=== PATIENT | male | born 1965 | race Hispanic/Latino ===

== ENCOUNTER 2023-11-20 17:23 | Emergency (ER) | payer OTHER ==
[~2023-11-20] VITALS: Ht 172.7 cm; Wt 65.8 kg
[2023-11-20 17:35] VITALS: TEMP 98.2
[2023-11-20 17:52] LABS: BASOPHILS # (AUTO) 0.1 (0.0-0.1); BASOPHILS % 1.9 % (0.0-1.0); EOSINOPHILS # (AUTO) 0.2 (0.0-0.4); HEMATOCRIT 37.1 % (38.2-49.6); HEMOGLOBIN 12.8 g/dL (14.0-18.0); LYMPHOCYTES # (AUTO) 2.3 (1.0-3.2); LYMPHOCYTES % 35.4 % (18.0-39.1); MEAN CORPUSCULAR HEMOGLOBIN 34.9 pg (28-32); MEAN CORPUSCULAR HGB CONC 34.5 g/dL (31-35); MEAN CORPUSCULAR VOLUME 101.1 fL (81-99); MONOCYTES # (AUTO) 0.6 (0.2-0.8); MONOCYTES % 8.9 % (4.4-11.3); NEUTROPHILS # (AUTO) 3.2 (2.1-6.9); NEUTROPHILS % 50.5 % (38.7-80.0); PLATELET COUNT 382 x10e3/uL (140-360); RED BLOOD COUNT 3.67 x10e6/uL (4.3-5.7); RED CELL DISTRIBUTION WIDTH 12.3 % (11.7-14.4); WHITE BLOOD COUNT 6.39 x10e3/uL (4.8-10.8)
[2023-11-20 17:55] LABS: AMPHETAMINES SCREEN,URINE NEGATIVE (NEGATIVE); BENZODIAZEPINES SCREEN,URINE NEGATIVE (NEGATIVE); CLARITY,URINE HAZY (CLEAR); COLOR,URINE YELLOW (YELLOW); GLUCOSE, URINE NEGATIVE (NEGATIVE); KETONES,URINE NEGATIVE (NEGATIVE); LEUKOCYTE ESTERASE ,URINE NEGATIVE (NEGATIVE); NITRITE,URINE NEGATIVE (NEGATIVE); OPIATES SCREEN,URINE NEGATIVE (NEGATIVE); PH,URINE 6 (5 - 7); PHENCYCLIDINE SCREEN,URINE NEGATIVE (NEGATIVE); PROTEIN,URINE DIPSTICK NEGATIVE (NEGATIVE)
[2023-11-20 17:56] LABS: BACTERIA,URINE FEW /HPF; BILIRUBIN,URINE NEGATIVE (NEGATIVE); CANNABINOIDS SCREEN,URINE NEGATIVE (NEGATIVE); EPITHELIAL CELLS,URINE FEW /LPF; METHADONE SCREEN, URINE NEGATIVE (NEGATIVE); RBC,URINE 0-5 /HPF (0-5); URINE UROBILINOGEN 0.2 mg/dL (0.2 - 1); WBC,URINE (MAN) 0-5 /HPF (0-5)
[2023-11-20 18:01] LABS: INR 0.91; PROTHROMBIN TIME 12.7 seconds (11.9-14.5)
[2023-11-20 18:02] LABS: PARTIAL THROMBOPLASTIN TIME 27.9 seconds (23.8-35.5)
[2023-11-20 18:11] LABS: ALBUMIN 3.9 g/dL (3.5-5.0); ALBUMIN/GLOBULIN RATIO 1.3 (0.8-2.0); ANION GAP 19.7 mmol/L (8-16); BILIRUBIN,TOTAL 0.1 mg/dL (0.2-1.2); CALCIUM 8.9 mg/dL (8.4-10.2); CREATININE, SERUM 0.96 mg/dL (0.72-1.25); ETHANOL 241.7 mg/dL (0.0-10.0); POTASSIUM 3.7 mmol/L (3.5-5.1); TOTAL PROTEIN 6.8 g/dL (6.5-8.1)
[2023-11-20 18:17] LABS: TROPONIN I 0.001 ng/mL (0-0.300)
[2023-11-20] MEDS: SODIUM CHLORIDE 0.9% 1000ML 1,000 ML IV STA (18:28)
[2023-11-20 18:30] VITALS: PULSE 89; RESP 19
[2023-11-20] MEDS ORDERED: IOPAMIDOL 370 MG/ML 100 ML INFUS..BTL INJ ONE (19:25)
[2023-11-20] MEDS ORDERED: KETOROLAC TROME10 MG PO (20:07)
[2023-11-20] MEDS ORDERED: FLOMAX0.4 MG PO (20:07)
[2023-11-20 20:29] VITALS: BP 118/74; O2SAT 99
== END 2023-11-20 20:30 | disposition home or self-care (01) ==
LOC: ER 17:37
DX: R30.0 Dysuria (principal); R33.9 Retention of urine, unspecified; N40.0 Benign prostatic hyperplasia without lower urinary tract symptoms; R10.30 Lower abdominal pain, unspecified; K52.9 Noninfective gastroenteritis and colitis, unspecified; R91.8 Other nonspecific abnormal finding of lung field; K76.0 Fatty (change of) liver, not elsewhere classified; F17.210 Nicotine dependence, cigarettes, uncomplicated
CPT/HCPCS: 36415; 71260; 74177; 80053; 80307; 80320; 81001; 82550; 83690; 84484; 85025; 85610; 85730; 93005; 99284; J7030; Q9967

== ENCOUNTER 2024-01-03 19:55 | Inpatient (IN) | payer OTHER ==
[~2024-01-03] VITALS: Ht 167.6 cm; Wt 60.5 kg
[~2024-01-03 19:55] MED LIST: FLOMAX0.4 MG PO; KETOROLAC TROME10 MG PO
[2024-01-03 20:17] VITALS: TEMP 98.5
[2024-01-03 20:39] LABS: BASOPHILS # (AUTO) 0.1 (0.0-0.1); BASOPHILS % 0.4 % (0.0-1.0); HEMATOCRIT 29.9 % (38.2-49.6); HEMOGLOBIN 9.8 g/dL (14.0-18.0); LYMPHOCYTES # (AUTO) 1.4 (1.0-3.2); LYMPHOCYTES % 5.4 % (18.0-39.1); MEAN CORPUSCULAR HEMOGLOBIN 33.3 pg (28-32); MEAN CORPUSCULAR HGB CONC 32.8 g/dL (31-35); MEAN CORPUSCULAR VOLUME 101.7 fL (81-99); MONOCYTES # (AUTO) 1.7 (0.2-0.8); MONOCYTES % 6.6 % (4.4-11.3); NEUTROPHILS # (AUTO) 21.8 (2.1-6.9); NEUTROPHILS % 86.8 % (38.7-80.0); PLATELET COUNT 391 x10e3/uL (140-360); RED BLOOD COUNT 2.94 x10e6/uL (4.3-5.7); RED CELL DISTRIBUTION WIDTH 13.7 % (11.7-14.4); WHITE BLOOD COUNT 25.17 x10e3/uL (4.8-10.8)
[2024-01-03 20:40] VITALS: PULSE 96; RESP 20; O2SAT 99
[2024-01-03 20:41] LABS: BILIRUBIN,URINE NEGATIVE (NEGATIVE); CLARITY,URINE SL CLOUDY (CLEAR); COLOR,URINE YELLOW (YELLOW); GLUCOSE, URINE NEGATIVE (NEGATIVE); KETONES,URINE NEGATIVE (NEGATIVE); LEUKOCYTE ESTERASE ,URINE MODERATE (NEGATIVE); NITRITE,URINE NEGATIVE (NEGATIVE); PH,URINE 6.5 (5 - 7); PROTEIN,URINE DIPSTICK NEGATIVE (NEGATIVE); URINE UROBILINOGEN 0.2 mg/dL (0.2 - 1)
[2024-01-03 20:53] LABS: ALBUMIN 3.9 g/dL (3.5-5.0); ALBUMIN/GLOBULIN RATIO 1.1 (0.8-2.0); ANION GAP 17.4 mmol/L (8-16); BILIRUBIN,TOTAL 0.7 mg/dL (0.2-1.2); CALCIUM 9.3 mg/dL (8.4-10.2); CREATININE, SERUM 0.75 mg/dL (0.72-1.25); TOTAL PROTEIN 7.6 g/dL (6.5-8.1)
[2024-01-03 20:54] LABS: POTASSIUM 3.4 mmol/L (3.5-5.1)
[2024-01-03 20:55] LABS: BACTERIA,URINE MODERATE /HPF; RBC,URINE 0-5 /HPF (0-5)
[2024-01-03] MEDS: SODIUM CHLORIDE 0.9% 1000ML 1,000 ML IV SCH ×2 (21:03→21:53)
[2024-01-03] MEDS: Morphine 4mg INJECTION 4 MG/ML INJ IV PRN (21:03)
[2024-01-03] MEDS: ONDANSETRON HCL INJ 2MG/ML 2ML 2 MG/ML VIAL IV PRN (21:04)
[2024-01-03] MEDS: PIPERACILLIN/TAZOBACTAM 4.5 GM in SODIUM CHLORIDE 0.9% 100 ML IV ONE (21:04)
[2024-01-03 21:40] VITALS: PULSE 92; RESP 16
[2024-01-03 23:53] VITALS: BP 127/72; PULSE 108; RESP 20; TEMP 98.6; O2SAT 100
[2024-01-04] VITALS (9 sets, daily range): BP systolic 124–145; BP diastolic 72–85; PULSE 92–116; RESP 18–20; TEMP 98.2–99.9; O2SAT 96–100
[2024-01-04 05:26] LABS: ANION GAP 11.8 mmol/L (8-16); CALCIUM 8.6 mg/dL (8.4-10.2); CREATININE, SERUM 0.76 mg/dL (0.72-1.25); POTASSIUM 3.8 mmol/L (3.5-5.1)
[2024-01-04 05:33] LABS: BASOPHILS # (AUTO) 0.1 (0.0-0.1); BASOPHILS % 0.5 % (0.0-1.0); EOSINOPHILS % 0.1 % (0.0-6.0); HEMATOCRIT 28.8 % (38.2-49.6); HEMOGLOBIN 9.7 g/dL (14.0-18.0); LYMPHOCYTES # (AUTO) 0.8 (1.0-3.2); LYMPHOCYTES % 3.8 % (18.0-39.1); MEAN CORPUSCULAR HEMOGLOBIN 33.3 pg (28-32); MEAN CORPUSCULAR HGB CONC 33.7 g/dL (31-35); MONOCYTES # (AUTO) 1.2 (0.2-0.8); MONOCYTES % 5.9 % (4.4-11.3); NEUTROPHILS # (AUTO) 18.4 (2.1-6.9); NEUTROPHILS % 89.1 % (38.7-80.0); PLATELET COUNT 355 x10e3/uL (140-360); RED BLOOD COUNT 2.91 x10e6/uL (4.3-5.7); RED CELL DISTRIBUTION WIDTH 13.9 % (11.7-14.4); WHITE BLOOD COUNT 20.68 x10e3/uL (4.8-10.8)
[2024-01-04] MEDS ORDERED: PANTOPRAZOLE SO40 MG PO (06:13)
[2024-01-04] MEDS ORDERED: ULTRAM 50MG50 MG PO (06:13)
[2024-01-04] MEDS ORDERED: LABETALOL HCL 5 MG/ML 20ML VIAL IV PRN (07:00)
[2024-01-04] MEDS ORDERED: DOCUSATE SODIUM 100 MG CAP PO SCH (09:00)
[2024-01-04 10:51] LABS: BASOPHILS % (MANUAL) 1 % (0-1.5); LYMPHOCYTES % (MANUAL) 4 % (19-48); MONOCYTES % (MANUAL) 2 % (3.4-9.0); NEUTROPHILS % (MANUAL) 93 % (40-74)
[2024-01-04 10:52] LABS: HYPOCHROMASIA SLIGHT; PLATELET ESTIMATE ADEQUATE; PLATELET MORPHOLOGY COMMENT NORMAL
[2024-01-04] MEDS: DOCUSATE SODIUM 100 MG CAP PO SCH (11:14)
[2024-01-05] VITALS (8 sets, daily range): BP systolic 120–154; BP diastolic 67–88; PULSE 85–112; RESP 16–19; TEMP 97.8–99.5; O2SAT 98–100
[2024-01-05 04:59] LABS: BASOPHILS # (AUTO) 0.1 (0.0-0.1); BASOPHILS % 0.5 % (0.0-1.0); EOSINOPHILS # (AUTO) 0.1 (0.0-0.4); EOSINOPHILS % 0.5 % (0.0-6.0); HEMATOCRIT 27.8 % (38.2-49.6); LYMPHOCYTES # (AUTO) 1.1 (1.0-3.2); LYMPHOCYTES % 4.8 % (18.0-39.1); MEAN CORPUSCULAR HEMOGLOBIN 33.3 pg (28-32); MEAN CORPUSCULAR HGB CONC 32.4 g/dL (31-35); MONOCYTES # (AUTO) 1.6 (0.2-0.8); MONOCYTES % 7.2 % (4.4-11.3); NEUTROPHILS # (AUTO) 18.8 (2.1-6.9); NEUTROPHILS % 85.4 % (38.7-80.0); PLATELET COUNT 328 x10e3/uL (140-360); RED CELL DISTRIBUTION WIDTH 13.8 % (11.7-14.4); WHITE BLOOD COUNT 22.05 x10e3/uL (4.8-10.8)
[2024-01-05 05:30] LABS: ANION GAP 12.4 mmol/L (8-16); CHOL/HDL RATIO 1.9 (3.9-4.7); CREATININE, SERUM 0.64 mg/dL (0.72-1.25); MAGNESIUM 1.8 MG/DL (1.3-2.1); PHOSPHORUS 2.7 MG/DL (2.3-4.7)
[2024-01-05 05:32] LABS: POTASSIUM 3.4 mmol/L (3.5-5.1)
[2024-01-05 05:56] LABS: FREE T4 (FREE THYROXINE) 1.14 ng/dL (0.8-1.8); THYROID STIMULATING HORMONE 1.125 uIU/mL (0.350-4.940)
[2024-01-05] MEDS: POLYETHYLENE GLYCOL 3350 17 GM PACK PO PRN (09:11)
[2024-01-06] VITALS (10 sets, daily range): BP systolic 117–133; BP diastolic 60–90; PULSE 80–103; RESP 16–18; TEMP 97.9–98.9; O2SAT 96–99
[2024-01-06] MEDS: PANTOPRAZOLE SOD 40 MG TABEC PO SCH (04:51)
[2024-01-06 05:31] LABS: BASOPHILS # (AUTO) 0.1 (0.0-0.1); BASOPHILS % 0.4 % (0.0-1.0); EOSINOPHILS # (AUTO) 0.1 (0.0-0.4); EOSINOPHILS % 0.7 % (0.0-6.0); HEMATOCRIT 24.4 % (38.2-49.6); HEMOGLOBIN 8.3 g/dL (14.0-18.0); LYMPHOCYTES # (AUTO) 1.2 (1.0-3.2); LYMPHOCYTES % 6.8 % (18.0-39.1); MEAN CORPUSCULAR HEMOGLOBIN 33.6 pg (28-32); MEAN CORPUSCULAR VOLUME 98.8 fL (81-99); MONOCYTES # (AUTO) 1.6 (0.2-0.8); NEUTROPHILS # (AUTO) 14.5 (2.1-6.9); NEUTROPHILS % 81.1 % (38.7-80.0); PLATELET COUNT 331 x10e3/uL (140-360); RED BLOOD COUNT 2.47 x10e6/uL (4.3-5.7); RED CELL DISTRIBUTION WIDTH 13.7 % (11.7-14.4); WHITE BLOOD COUNT 17.83 x10e3/uL (4.8-10.8)
[2024-01-06 06:05] LABS: ANION GAP 12.4 mmol/L (8-16); CALCIUM 8.8 mg/dL (8.4-10.2); CREATININE, SERUM 0.68 mg/dL (0.72-1.25)
[2024-01-06 06:06] LABS: POTASSIUM 3.4 mmol/L (3.5-5.1)
[2024-01-06] MEDS: POTASSIUM CHLORIDE 10MEQ EA PO ONE (12:22)
[2024-01-07] VITALS (11 sets, daily range): BP systolic 113–134; BP diastolic 62–81; PULSE 78–101; RESP 16–18; TEMP 97.4–98; O2SAT 96–99
[2024-01-07] MEDS ORDERED: FENTANYL CITRATE/PF 100MCG/2 ML INJ ONE (07:08)
[2024-01-07] MEDS ORDERED: ROCURONIUM BROMIDE 1 ML IV ONE (07:08)
[2024-01-07] MEDS ORDERED: PROPOFOL IV EMULSION 10 MG/ML 20 ML VIAL ONE (07:08)
[2024-01-07] MEDS ORDERED: KETOROLAC TROMETHAMINE 30 MG/ML VIAL ONE (07:09)
[2024-01-07] MEDS ORDERED: ONDANSETRON HCL INJ 2MG/ML 2ML 2 MG/ML VIAL ONE (07:09)
[2024-01-07] MEDS ORDERED: LIDOCAINE HCL 2% LOCAL INJ 5 ML SDV VIAL INJ ONE (07:09)
[2024-01-07] MEDS ORDERED: DEXAMETHASONE SOD PHOS INJ 4 MG/ML SDV ONE (07:09)
[2024-01-07] MEDS ORDERED: EPHEDRINE SULFATE INJ 50 MG/ML VIAL ONE (07:46)
[2024-01-07] MEDS ORDERED: Morphine 10mg syringe 10 MG/ML INJ ONE (08:08)
[2024-01-07] MEDS ORDERED: ACETAMINOPHEN 1000 MG/100 ML IV PRN (09:15)
[2024-01-07] MEDS ORDERED: PHENAZOPYRIDINE HCL 100 MG TAB PO PRN (09:15)
[2024-01-07] MEDS ORDERED: ACETAMINOPHEN/CODEINE 300MG - 30MG TAB PO PRN (09:15)
[2024-01-07] MEDS: ACETAMINOPHEN/CODEINE 300MG - 30MG TAB PO ONE (09:52)
[2024-01-07] MEDS: SODIUM CHLORIDE 0.9% 1000ML 1,000 ML IV SCH (10:00)
[2024-01-07 10:03] LABS: BASOPHILS # (AUTO) 0.1 (0.0-0.1); BASOPHILS % 0.4 % (0.0-1.0); EOSINOPHILS # (AUTO) 0.1 (0.0-0.4); EOSINOPHILS % 0.7 % (0.0-6.0); HEMOGLOBIN 8.2 g/dL (14.0-18.0); LYMPHOCYTES % 4.6 % (18.0-39.1); MEAN CORPUSCULAR HGB CONC 30.4 g/dL (31-35); MONOCYTES # (AUTO) 0.6 (0.2-0.8); MONOCYTES % 2.9 % (4.4-11.3); NEUTROPHILS # (AUTO) 18.8 (2.1-6.9); NEUTROPHILS % 90.7 % (38.7-80.0); PLATELET COUNT 86 x10e3/uL (140-360); RED BLOOD COUNT 2.41 x10e6/uL (4.3-5.7); RED CELL DISTRIBUTION WIDTH 13.9 % (11.7-14.4); WHITE BLOOD COUNT 20.72 x10e3/uL (4.8-10.8)
[2024-01-07] MEDS ORDERED: SODIUM CHLORIDE 0.9% 1000ML 1,000 ML IV SCH (10:15)
[2024-01-07 10:23] LABS: ANION GAP 12.7 mmol/L (8-16); CREATININE, SERUM 0.6 mg/dL (0.72-1.25); POTASSIUM 3.7 mmol/L (3.5-5.1)
[2024-01-07 10:25] LABS: CALCIUM 6.9 mg/dL (8.4-10.2)
[2024-01-07] MEDS: CALCIUM CARBONATE 500 MG CHEWABLE TABS PO SCH (12:12)
[2024-01-07] MEDS: ACETAMINOPHEN 325 MG TAB PO PRN (14:31)
[2024-01-07] MEDS: DIPHENHYDRAMINE HCL 25 MG CAP PO PRN (20:34)
[2024-01-07] MEDS: MAGNESIUM SULFATE 2GM/50ML 50 ML IV ONE (23:06)
[2024-01-08] VITALS (10 sets, daily range): BP systolic 122–146; BP diastolic 68–86; PULSE 84–119; RESP 17–21; TEMP 98.1–100.7; O2SAT 94–98
[2024-01-08 09:20] LABS: BASOPHILS # (AUTO) 0.1 (0.0-0.1); BASOPHILS % 0.6 % (0.0-1.0); EOSINOPHILS % 0.4 % (0.0-6.0); HEMATOCRIT 22.3 % (38.2-49.6); LYMPHOCYTES # (AUTO) 0.9 (1.0-3.2); LYMPHOCYTES % 8.2 % (18.0-39.1); MEAN CORPUSCULAR HEMOGLOBIN 32.7 pg (28-32); MEAN CORPUSCULAR HGB CONC 31.4 g/dL (31-35); MEAN CORPUSCULAR VOLUME 104.2 fL (81-99); MONOCYTES # (AUTO) 0.8 (0.2-0.8); MONOCYTES % 6.9 % (4.4-11.3); NEUTROPHILS # (AUTO) 9.2 (2.1-6.9); NEUTROPHILS % 82.5 % (38.7-80.0); PLATELET COUNT 401 x10e3/uL (140-360); RED BLOOD COUNT 2.14 x10e6/uL (4.3-5.7); RED CELL DISTRIBUTION WIDTH 13.7 % (11.7-14.4); WHITE BLOOD COUNT 11.09 x10e3/uL (4.8-10.8)
[2024-01-08 09:35] LABS: ANION GAP 15.4 mmol/L (8-16); CALCIUM 8.3 mg/dL (8.4-10.2); CREATININE, SERUM 0.76 mg/dL (0.72-1.25)
[2024-01-08 09:40] LABS: POTASSIUM 3.4 mmol/L (3.5-5.1)
[2024-01-08 18:38] LABS: CORONAVIRUS COVID-19 AG NEGATIVE (NEGATIVE); INFLUENZA A AG NEGATIVE (NEGATIVE); INFLUENZA B AG NEGATIVE (NEGATIVE)
[2024-01-09] VITALS (10 sets, daily range): BP systolic 133–154; BP diastolic 81–89; PULSE 65–103; RESP 18; TEMP 97.7–98.7; O2SAT 93–100
[2024-01-09 05:25] LABS: BASOPHILS # (AUTO) 0.1 (0.0-0.1); BASOPHILS % 0.8 % (0.0-1.0); EOSINOPHILS # (AUTO) 0.1 (0.0-0.4); EOSINOPHILS % 1.3 % (0.0-6.0); HEMATOCRIT 21.2 % (38.2-49.6); MEAN CORPUSCULAR HEMOGLOBIN 32.4 pg (28-32); MEAN CORPUSCULAR HGB CONC 32.1 g/dL (31-35); MONOCYTES # (AUTO) 1.1 (0.2-0.8); MONOCYTES % 11.6 % (4.4-11.3); NEUTROPHILS # (AUTO) 6.8 (2.1-6.9); NEUTROPHILS % 74.2 % (38.7-80.0); PLATELET COUNT 404 x10e3/uL (140-360); RED CELL DISTRIBUTION WIDTH 13.7 % (11.7-14.4); WHITE BLOOD COUNT 9.12 x10e3/uL (4.8-10.8)
[2024-01-09 05:33] LABS: HEMOGLOBIN 6.8 g/dL (14.0-18.0)
[2024-01-09 05:53] LABS: ANION GAP 13.3 mmol/L (8-16); CALCIUM 8.3 mg/dL (8.4-10.2); CREATININE, SERUM 0.7 mg/dL (0.72-1.25)
[2024-01-09 05:54] LABS: POTASSIUM 3.3 mmol/L (3.5-5.1)
[2024-01-09 09:49] LABS: ABG HCO3 23 mmol/L (22-26); ABG PCO2 37 mmHg (35-45); ABG PH 7.39 (7.35-7.45); ABG PO2 31 mmHg (80-105); ABG TCO2 24
[2024-01-09] MEDS: POTASSIUM CHLORIDE 20 MEQ TAB CR PO ONE (11:56)
[2024-01-09] MEDS: GUAIFENESIN/DEXTROMETHORPHAN LIQD 5 ML UDC PO PRN (14:21)
[2024-01-09] MEDS: SODIUM CHLORIDE 0.9% 250ML 250 ML IV ONE (14:54)
[2024-01-09] MEDS ORDERED: SODIUM CHLORIDE 0.9% 250ML 250 ML ONE (20:09)
[2024-01-10 03:01] VITALS: BP 158/95; PULSE 82; RESP 18; TEMP 98.4; O2SAT 97
[2024-01-10 05:10] LABS: BASOPHILS # (AUTO) 0.1 (0.0-0.1); BASOPHILS % 0.7 % (0.0-1.0); EOSINOPHILS # (AUTO) 0.2 (0.0-0.4); EOSINOPHILS % 2.2 % (0.0-6.0); HEMATOCRIT 27.2 % (38.2-49.6); HEMOGLOBIN 8.9 g/dL (14.0-18.0); LYMPHOCYTES # (AUTO) 1.3 (1.0-3.2); LYMPHOCYTES % 13.7 % (18.0-39.1); MEAN CORPUSCULAR HEMOGLOBIN 31.4 pg (28-32); MEAN CORPUSCULAR HGB CONC 32.7 g/dL (31-35); MEAN CORPUSCULAR VOLUME 96.1 fL (81-99); MONOCYTES % 10.6 % (4.4-11.3); NEUTROPHILS # (AUTO) 6.8 (2.1-6.9); NEUTROPHILS % 72.1 % (38.7-80.0); PLATELET COUNT 323 x10e3/uL (140-360); RED BLOOD COUNT 2.83 x10e6/uL (4.3-5.7); RED CELL DISTRIBUTION WIDTH 15.3 % (11.7-14.4); WHITE BLOOD COUNT 9.41 x10e3/uL (4.8-10.8)
[2024-01-10 05:32] LABS: ANION GAP 13.5 mmol/L (8-16); CALCIUM 8.6 mg/dL (8.4-10.2); CREATININE, SERUM 0.7 mg/dL (0.72-1.25); POTASSIUM 3.5 mmol/L (3.5-5.1)
[2024-01-10 06:39] VITALS: PULSE 74; RESP 20; O2SAT 98
[2024-01-10 08:00] VITALS: BP 163/86; PULSE 78; RESP 18; TEMP 98; O2SAT 99
[2024-01-10 08:01] VITALS: BP 163/86; PULSE 78; RESP 18; TEMP 98; O2SAT 99
[2024-01-10 11:49] VITALS: BP 154/97; PULSE 95; RESP 18; TEMP 98.2; O2SAT 99
[2024-01-10] MEDS ORDERED: MIRALAX17 GM PO (15:56)
[2024-01-10] MEDS ORDERED: PYRIDIUM100 MG PO (15:56)
[2024-01-10] MEDS ORDERED: ACETAMINOPHEN325 M1 PO (15:56)
[2024-01-10] MEDS ORDERED: TUMS200 MG PO (15:56)
[2024-01-10] MEDS ORDERED: DIPHENHYDRAMINE25 M2 PO (15:56)
[2024-01-10] MEDS ORDERED: ONDANSETRON ODT4 MG PO (15:56)
[2024-01-10] MEDS ORDERED: GUAIFENESIN-DM 15 ML PO (15:56)
[2024-01-10] MEDS ORDERED: ACETAMINOPHEN-1 EAC4 PO (15:56)
[2024-01-10] MEDS ORDERED: DOCUSATE SODIU100 MG PO (15:56)
[2024-01-10] MEDS ORDERED: CIPRO500 MG PO (16:04)
[2024-01-10] MEDS: POTASSIUM CHLORIDE 10MEQ EA PO ONE (16:16)
[2024-01-10] MEDS: MAGNESIUM OXIDE 400 MG TAB PO ONE (16:17)
[2024-01-10 16:39] VITALS: BP 151/86; PULSE 79; RESP 18; TEMP 98.1; O2SAT 100
== END 2024-01-10 18:17 | disposition home or self-care (01) | DRG 854 ==
LOC: ER 20:32 → ERHOLD 20:38 → MED/SURG 23:53
PROVIDERS: ADMIT Internal Medicine; ATTEND Internal Medicine
PROC: 3E03329 Introduction of Other Anti-infective into Peripheral Vein, Percutaneous Approach (ICD-10-PCS; 2024-01-03)
PROC: 0V508ZZ Destruction of Prostate, Via Natural or Artificial Opening Endoscopic (ICD-10-PCS; 2024-01-07)
PROC: BT141ZZ Fluoroscopy of Kidneys, Ureters and Bladder using Low Osmolar Contrast (ICD-10-PCS; 2024-01-07)
PROC: BT101ZZ Fluoroscopy of Bladder using Low Osmolar Contrast (ICD-10-PCS; 2024-01-07)
PROC: 4A133R1 Monitoring of Arterial Saturation, Peripheral, Percutaneous Approach (ICD-10-PCS; 2024-01-08)
PROC: 30233N1 Transfusion of Nonautologous Red Blood Cells into Peripheral Vein, Percutaneous Approach (ICD-10-PCS; principal; 2024-01-09)
DX: A41.59 Other Gram-negative sepsis (principal); E87.1 Hypo-osmolality and hyponatremia; N39.0 Urinary tract infection, site not specified; Z16.12 Extended spectrum beta lactamase (ESBL) resistance; Z16.24 Resistance to multiple antibiotics; N13.8 Other obstructive and reflux uropathy; N40.1 Benign prostatic hyperplasia with lower urinary tract symptoms; B96.1 Klebsiella pneumoniae [K. pneumoniae] as the cause of diseases classified elsewhere; R31.29 Other microscopic hematuria; R33.8 Other retention of urine; K21.9 Gastro-esophageal reflux disease without esophagitis; D64.9 Anemia, unspecified; E87.6 Hypokalemia; E83.51 Hypocalcemia; E83.42 Hypomagnesemia; F17.200 Nicotine dependence, unspecified, uncomplicated; R05.9 Cough, unspecified; K59.00 Constipation, unspecified; Z11.52 Encounter for screening for COVID-19; Z79.899 Other long term (current) drug therapy
CPT/HCPCS: 36415; 51700; 74420; 80048; 80053; 80061; 81001; 82805; 83036; 83605; 83735; 84100; 84439; 84443; 85025; 86850; 86900; 86920; 87040; 87086; 87186; 88305; 94799; 99284; C1758; J1100; J1885; J2003; J2270; J2405; J2543; J3475; J7030; J7050; P9016